=== PATIENT | female | born 1965 | race American Indian/Alaskan Native ===

== ENCOUNTER 2019-09-13 21:53 | Emergency (ER) | payer MEDICAID ==
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
--- NOTE | 2019-09-13 23:18 | XRay Report ---
Left hand 3 views INDICATION: Left hand pain. IMPRESSION: No fracture or subluxation of the left thumb is identified. Signer Name: Rachid Brown MD Signed: 09/13/2019 11:14 PM Workstation Name: [id number]
[2019-09-14] MEDS ORDERED: ULTRAM PO ONE (02:34)
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
[2019-09-14 03:36] VITALS: BP 140/78
== END 2019-09-14 03:34 | disposition home or self-care (01) ==
LOC: ED 21:53
DX: S63.642A Sprain of metacarpophalangeal joint of left thumb, initial encounter (principal); F17.200 Nicotine dependence, unspecified, uncomplicated; I10 Essential (primary) hypertension; Z88.8 Allergy status to other drugs, medicaments and biological substances; X58.XXXA Exposure to other specified factors, initial encounter; Y93.89 Activity, other specified; Y92.89 Other specified places as the place of occurrence of the external cause; Y99.8 Other external cause status

== ENCOUNTER 2019-12-27 13:15 | Emergency (ER) | payer MEDICAID ==
[2019-12-27] MEDS ORDERED: ONDANSETRON 4 MG/2 ML INJ IV STA (13:56)
[2019-12-27] MEDS ORDERED: MORPHINE 4 MG/1 ML INJ IV STA (13:56)
--- NOTE | 2019-12-27 14:04 | Emergency Department Report ---
ED Chest Pain HPI - General Chief Complaint: Chest Pain Stated Complaint: CHEST PAIN/SOB Time Seen by Provider: 12/27/19 13:54 Source: patient, EMS Mode of arrival: Stretcher Limitations: No Limitations - History of Present Illness MD Complaint: chest pain Pain Location: substernal, left chest Pain Radiation: none Severity: mild, moderate Quality: aching, sharp Consistency: constant Improves With: nothing Worsens With: movement - Related Data Previous Rx's Medication Instructions Recorded Last Taken Type Dicyclomine [Bentyl] 10 mg PO QID PRN #20 capsule 02/14/19 Unknown Rx Famotidine [Pepcid] 20 mg PO BID #60 tablet 02/14/19 Unknown Rx Metoclopramide [Reglan] 10 mg PO QID PRN #30 tablet 02/14/19 Unknown Rx Ondansetron [Zofran Odt] 4 mg PO Q8HR PRN #20 tab.rapdis 02/14/19 Unknown Rx Acetaminophen/Codeine [Tylenol 1 tab PO Q6H PRN 3 Days #12 tab 09/14/19 Unknown Rx /Codeine # 3 tab] methOCARBAMOL [Robaxin TAB] 750 mg PO Q8H #20 tablet 12/27/19 Unknown Rx predniSONE [Deltasone] 50 mg PO QDAY #5 tab 12/27/19 Unknown Rx Allergies Allergy/AdvReac Type Severity Reaction Status Date / Time NSAIDS (Non-Steroidal AdvReac Vomiting Verified 02/14/19 20:14 Anti-Inflamma Heart Score - HEART Score History: Moderately suspicious EKG: Normal Age: 45-65 Risk factors: 1-2 risk factors Troponin: < normal limit HEART Score: 3 ED Review of Systems ROS: Stated complaint: CHEST PAIN/SOB Other details as noted in HPI Comment: All other systems reviewed and negative ED Past Medical Hx - Past Medical History Previous Medical History?: Yes Hx Hypertension: Yes Hx Heart Attack/AMI: Yes Additional medical history: PUD, Pluerisy, Sciatica - Surgical History Past Surgical History?: No - Social History Smoking Status: Current Every Day Smoker - Medications Home Medications: Home Medications Medication Instructions Recorded Confirmed Last Taken Type Dicyclomine [Bentyl] 10 mg PO QID PRN #20 capsule 02/14/19 Unknown Rx Famotidine [Pepcid] 20 mg PO BID #60 tablet 03/21/19 Unknown Rx Metoclopramide [Reglan] 10 mg PO QID PRN #30 tablet 02/14/19 Unknown Rx Ondansetron [Zofran Odt] 4 mg PO Q8HR PRN #20 tab.rapdis 02/14/19 Unknown Rx Acetaminophen/Codeine [Tylenol 1 tab PO Q6H PRN 3 Days #12 tab 09/14/19 Unknown Rx /Codeine # 3 tab] methOCARBAMOL [Robaxin TAB] 750 mg PO Q8H #20 tablet 12/27/19 Unknown Rx predniSONE [Deltasone] 50 mg PO QDAY #5 tab 12/27/19 Unknown Rx ED Physical Exam - General Limitations: No Limitations General appearance: alert, in no apparent distress - Head Head exam: Present: atraumatic, normocephalic - Eye Eye exam: Present: normal appearance, PERRL, EOMI Pupils: Present: normal accommodation - ENT ENT exam: Present: mucous membranes moist - Neck Neck exam: Present: normal inspection - Respiratory Respiratory exam: Present: normal lung sounds bilaterally, rhonchi, chest wall tenderness. Absent: respiratory distress, accessory muscle use, decreased breath sounds, prolonged expiratory - Cardiovascular Cardiovascular Exam: Present: regular rate, normal rhythm. Absent: systolic murmur, diastolic murmur, rubs, gallop - GI/Abdominal GI/Abdominal exam: Present: soft, normal bowel sounds - Extremities Exam Extremities exam: Present: normal inspection - Back Exam Back exam: Present: normal inspection - Neurological Exam Neurological exam: Present: alert, oriented X3 - Psychiatric Psychiatric exam: Present: normal affect, normal mood - Skin Skin exam: Present: warm, dry, intact, normal color. Absent: rash ED Course Vital Signs 12/27/19 12/27/19 12/27/19 13:33 13:35 14:00 Temperature 98.3 F Pulse Rate 64 63 Respiratory 19 21 Rate Blood Pressure 145/88 139/87 O2 Sat by Pulse 99 99 99 Oximetry 12/27/19 12/27/19 12/27/19 14:31 14:35 15:00 Temperature Pulse Rate 62 60 Respiratory 15 16 14 Rate Blood Pressure 139/87 143/83 O2 Sat by Pulse 99 99 Oximetry 12/27/19 12/27/19 12/27/19 15:31 16:01 16:31 Temperature Pulse Rate 78 62 61 Respiratory 18 11 L 13 Rate Blood Pressure 143/83 143/77 143/77 O2 Sat by Pulse 100 100 100 Oximetry 12/27/19 12/27/19 12/27/19 17:01 17:31 18:01 Temperature Pulse Rate 58 L 54 L 53 L Respiratory 18 14 11 L Rate Blood Pressure 120/67 145/67 O2 Sat by Pulse 96 99 99 Oximetry - Consultations Consultation #1: 12/27/19 18:31 Patient refuses briefly discussed with Dr. Mendez of the patient's PCP plan is to admit ANTONI score - Antoni Score Age > 65: (0) No Aspirin use within the Past 7 Days: (0) No 3 or more CAD Risk Factors: (0) No 2 or more Angina events in past 24 hrs: (0) No Known CAD with more than 50% Stenosis: (0) No Elevated Cardiac Markers: (0) No ST Deviation Greater than 0.5mm: (0) No ANTONI Score: 0 ED Medical Decision Making - Lab Data Result diagrams: 12/27/19 14:19 12/27/19 14:19 - Radiology Data Radiology results: report reviewed - Medical Decision Making The patient presented with chest pain of uncertain etiology. Based on their history, lab analysis, EKG (which showed no evidence of ischemia or infarction), and imaging, in addition to the patient's physical exam, I see no evidence at this time for a malignant etiology for the patient's chest pain. There is no acute evidence for pulmonary embolus, acute myocardial infarction, pneumothorax, esophageal rupture, cardiac tamponade, thoracic artery dissection, or any other emergent cardiac, pulmonary or aortic pathology at this time. [Based on the nature and long duration of the patient's pain, paucity of EKG findings, and normal cardiac enzymatic blood analysis, acute coronary syndrome is exceedingly unlikely. It is highly likely that cardiac enzymes would be abnormal in chest pain of this duration if their chest pain was attributable to ACS.] [The patient also has very low risk for coronary artery disease based on their risk factor profile with no substantial risk factors (Age>65, >3 CAD risk factors -- family history of CAD, hypertension, hypercholesterolemia, diabetes, or current smoker, known CAD as defined by >50% stenosis, aspirin use in the past 7 days, severe angina having more than 2 episodes in the past 24 hours, ST changes >0.5mm, or positive cardiac biomarker).] HEART score _0-3. This patient may require cardiac stress testing on an outpatient basis and arrangements for this may be made during their follow-up visit with their primary care physician. The patient understands that at this time there is no evidence for a more malignant underlying process, but the patient also understands that early in the process of an illness, an emergency department workup can be falsely reassuring. Routine discharge counseling was given to the patient and the patient understands that worsening, changing, or persistent symptoms should prompt an immediate call or follow up with their primary physician or the emergency department immediately. The importance of close follow up was also discussed with the patient. Critical care attestation.: If time is entered above; I have spent that time in minutes in the direct care of this critically ill patient, excluding procedure time. ED Disposition Clinical Impression: Chest pain, Back pain Disposition: DC/ [facility] IP Is pt being admited?: No Does the pt Need Aspirin: No Condition: Stable Instructions: Chest Pain (ED), Costochondritis (ED) Prescriptions: predniSONE [Deltasone] 50 mg PO QDAY #5 tab methOCARBAMOL [Robaxin TAB] 750 mg PO Q8H #20 tablet Referrals: RENEA MENDEZ MD [Staff Physician] - 3-5 Days
--- NOTE | 2019-12-27 14:21 | XRay Report ---
CHEST 1 VIEW / XR chest 1V ap INDICATION: Chest Pain. COMPARISON: 02/14/2019 CXR. FINDINGS: Portable, single, frontal chest radiograph again demonstrates normal cardiomediastinal silh ou[place]. Clear lungs without pleural effusions or CHF. Intact bones. EKG leads. CONCLUSION/IMPRESSION: No acute disease. Thank you for the opportunity to participate in this patient's care. Signer Name: Seb Burk Signed: 12/27/2019 2:17 PM Workstation Name: [id number]
[2019-12-27 14:29] LABS: Basophils % (Auto) 0.2 % (0.0-1.8); Eosinophils % (Auto) 0.3 % (0.0-4.3); Hematocrit 41.9 % (30.3-42.9); Hemoglobin 14.2 gm/dl (10.1-14.3); Lymphocytes # (Auto) 1.2 K/mm3 (1.2-5.4); Lymphocytes % (Auto) 25.3 % (13.4-35.0); Mean Corpuscular HGB Conc 34 % (30-34); Mean Corpuscular Volume 98 fl (79-97); Monocytes # (Auto) 0.2 K/mm3 (0.0-0.8); Monocytes % (Auto) 3.2 % (0.0-7.3); Platelet Count 272 K/mm3 (140-440); Red Blood Count 4.26 M/mm3 (3.65-5.03); Red Cell Distribution Width 14.2 % (13.2-15.2)
[2019-12-27 14:52] LABS: BUN/Creatinine Ratio 24; Blood Urea Nitrogen 19 mg/dL (7-17); Hemolysis Index 15
[2019-12-27 18:09] VITALS: BP 145/67
== END 2019-12-27 19:05 | disposition short-term general hospital (02) ==
LOC: ED 13:15
DX: R07.9 Chest pain, unspecified (principal); M54.9 Dorsalgia, unspecified; I11.9 Hypertensive heart disease without heart failure; I25.2 Old myocardial infarction; F17.200 Nicotine dependence, unspecified, uncomplicated; Z79.899 Other long term (current) drug therapy; Z88.6 Allergy status to analgesic agent
CPT/HCPCS: 36415; 71045; 80048; 84484; 85025; 93005; 93010; 96374; 96375; 99285; J2270; J2405

== ENCOUNTER 2020-04-07 22:16 | Emergency (ER) | payer MEDICAID ==
[2020-04-07] MEDS ORDERED: SODIUM CHLORIDE 0.9% 1000 ML 1,000 ML IV ONE (23:50)
[2020-04-07] MEDS ORDERED: MORPHINE 4 MG/1 ML INJ IV ONE (23:50)
[2020-04-07 23:57] LABS: BUN/Creatinine Ratio 30; Blood Urea Nitrogen 18 mg/dL (7-17); Calcium 9.4 mg/dL (8.4-10.2); Hemolysis Index 8
[2020-04-08 00:05] LABS: Eosinophils # (Auto) 0.1 K/mm3 (0.0-0.4); Eosinophils % (Auto) 1.4 % (0.0-4.3); Hematocrit 38.9 % (30.3-42.9); Hemoglobin 13.4 gm/dl (10.1-14.3); Lymphocytes # (Auto) 2.6 K/mm3 (1.2-5.4); Mean Corpuscular HGB Conc 34 % (30-34); Mean Corpuscular Volume 97 fl (79-97); Monocytes # (Auto) 0.4 K/mm3 (0.0-0.8); Monocytes % (Auto) 7.6 % (0.0-7.3); Platelet Count 259 K/mm3 (140-440); Red Cell Distribution Width 13.7 % (13.2-15.2)
--- NOTE | 2020-04-08 00:09 | Emergency Department Report ---
ED Chest Pain HPI - General Chief Complaint: Chest Pain Stated Complaint: LEFT SIDE PAIN Time Seen by Provider: 04/07/20 23:28 Source: patient Mode of arrival: Ambulatory Limitations: No Limitations - History of Present Illness Initial Comments: 54-year-old -[place] Citizen female presents to the emergency department from home with complaint of chest and back pain, shortness of breath that has been going on over the past 3 to 4 days. She says initially it was just on the left side and felt like "someone was stabbing my lungs." Since that time it is also started to affect her right side. Patient has a dry cough that is chronic. Patient took a tramadol earlier this morning without much relief. She has a past medical history of pleurisy, sciatica, ulcerative colitis, hypertension, migraine headaches, and says that she has a history of a "mild heart attack" in the past. 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 No recent travel or sick contacts at home. She is a tobacco smoker but denies any illicit drug use. - Related Data Previous Rx's Medication Instructions Recorded Last Taken Type Dicyclomine [Bentyl] 10 mg PO QID PRN #20 capsule 02/14/19 Unknown Rx Famotidine [Pepcid] 20 mg PO BID #60 tablet 02/14/19 Unknown Rx Metoclopramide [Reglan] 10 mg PO QID PRN #30 tablet 02/14/19 Unknown Rx Ondansetron [Zofran Odt] 4 mg PO Q8HR PRN #20 tab.rapdis 02/14/19 Unknown Rx Acetaminophen/Codeine [Tylenol 1 tab PO Q6H PRN 3 Days #12 tab 09/14/19 Unknown Rx /Codeine # 3 tab] methOCARBAMOL [Robaxin TAB] 750 mg PO Q8H #20 tablet 12/27/19 Unknown Rx predniSONE [Deltasone] 50 mg PO QDAY #5 tab 12/27/19 Unknown Rx HYDROcodone/APAP 5-325 [[place] 1 each PO Q6HR PRN #8 tablet 04/08/20 Unknown Rx 5/325] predniSONE [Deltasone] 20 mg PO QDAY #4 tab 04/08/20 Unknown Rx Allergies Allergy/AdvReac Type Severity Reaction Status Date / Time NSAIDS (Non-Steroidal AdvReac Vomiting Verified 02/14/19 20:14 Anti-Inflamma Heart Score - HEART Score History: Slightly suspicious EKG: Normal Age: 45-65 Risk factors: 1-2 risk factors Troponin: < normal limit HEART Score: 2 - Critical Actions Critical Actions: 0-3 pts:0.9-1.7%risk of adverse cardiac event.Candidate for discharge ED Review of Systems ROS: Stated complaint: LEFT SIDE PAIN Other details as noted in HPI Comment: All other systems reviewed and negative Constitutional: denies: chills, fever Eyes: denies: eye pain, vision change ENT: denies: ear pain, throat pain Respiratory: cough, shortness of breath Cardiovascular: chest pain. denies: palpitations Gastrointestinal: denies: abdominal pain, vomiting Genitourinary: denies: dysuria, discharge Musculoskeletal: back pain. denies: arthralgia Skin: denies: rash, lesions Neurological: denies: headache, weakness ED Past Medical Hx - Past Medical History Previous Medical History?: Yes Hx Hypertension: Yes Hx Heart Attack/AMI: Yes Hx Headaches / Migraines: Yes Additional medical history: PUD, Pluerisy, Sciatica - Surgical History Past Surgical History?: No - Social History Smoking Status: Current Every Day Smoker Substance Use Type: None - Medications Home Medications: Home Medications Medication Instructions Recorded Confirmed Last Taken Type Dicyclomine [Bentyl] 10 mg PO QID PRN #20 capsule 02/14/19 Unknown Rx Famotidine [Pepcid] 20 mg PO BID #60 tablet 02/14/19 Unknown Rx Metoclopramide [Reglan] 10 mg PO QID PRN #30 tablet 02/14/19 Unknown Rx Ondansetron [Zofran Odt] 4 mg PO Q8HR PRN #20 tab.rapdis 02/14/19 Unknown Rx Acetaminophen/Codeine [Tylenol 1 tab PO Q6H PRN 3 Days #12 tab 09/14/19 Unknown Rx /Codeine # 3 tab] methOCARBAMOL [Robaxin TAB] 750 mg PO Q8H #20 tablet 12/27/19 Unknown Rx predniSONE [Deltasone] 50 mg PO QDAY #5 tab 12/27/19 Unknown Rx HYDROcodone/APAP 5-325 [[place] 1 each PO Q6HR PRN #8 tablet 04/08/20 Unknown Rx 5/325] predniSONE [Deltasone] 20 mg PO QDAY #4 tab 04/08/20 Unknown Rx ED Physical Exam - General Limitations: No Limitations - Other Other exam information: GENERAL: The patient is well-developed well-nourished. HENT: Normocephalic. Atraumatic. Patient has moist mucous membranes. EYES: Extraocular motions are intact. NECK: Supple. Trachea is midline. CHEST/LUNGS: Clear to auscultation. There is no respiratory distress noted. HEART/CARDIOVASCULAR: Regular. There is no tachycardia. There is no murmur. ABDOMEN: Abdomen is soft, nontender. Patient has normal bowel sounds. SKIN: Skin is warm and dry. NEURO: The patient is awake, alert, and oriented. The patient is cooperative. The patient has no focal neurologic deficits. Normal speech. MUSCULOSKELETAL: There is no tenderness or deformity. There is no evidence of acute injury. ED Course Vital Signs 04/07/20 04/08/20 23:05 04:25 Temperature 97.8 F 98 F Pulse Rate 66 79 Respiratory 18 16 Rate Blood Pressure 161/97 Blood Pressure 136/78 [Left] O2 Sat by Pulse 99 98 Oximetry ANTONI score - Antoni Score Age > 65: (0) No Aspirin use within the Past 7 Days: (0) No 3 or more CAD Risk Factors: (0) No 2 or more Angina events in past 24 hrs: (1) Yes Known CAD with more than 50% Stenosis: (0) No Elevated Cardiac Markers: (0) No ST Deviation Greater than 0.5mm: (0) No ANTONI Score: 1 ED Medical Decision Making - Lab Data Result diagrams: 04/07/20 23:26 04/07/20 23:26 - EKG Data -: EKG Interpreted by Me EKG shows normal: sinus rhythm, axis, intervals, QRS complexes (LVH), ST-T waves Rate: normal - EKG Data When compared to previous EKG there are: no significant change Interpretation: unchanged when compared t (01/14/20) - Radiology Data Radiology results: image reviewed interpreted by me: Chest x-ray does not show any acute process. There are no pleural effusions, obvious pneumonia and there is no pneumothorax. - Medical Decision Making This patient presents to the emergency department with a complaint of a 3 to 4- day history of some chest pain to the left side that radiated to the back and then to the right side. She does have a history of pleurisy, but also has a history of a "mild heart attack." EKG does not show any signs of ST elevation [place] or any significant dysrhythmia. Chest x-ray does not show any pneumonia, pneumothorax, focal consolidation, pleural effusions, or any other acute process. Patient's labs have been unremarkable including negative troponins x2 and a negative d-dimer. Patient was given some IV analgesia and a dose of IV Solu-Medrol. She has been reevaluated multiple times over multiple hours and her pain has resolved, currently down to a 0 out of 10. She has a heart score of 2 and a low ANTONI score. For all these reasons patient appears safe for discharge home at this time. As per our low risk chest pain protocol, her contact information has been sent over to [facility] [place], and someone from their office should be contacting her shortly for close outpatient follow-up. The patient will return to the emergency department with any worsening of her symptoms or any acute distress. Critical Care Time: No Critical care attestation.: If time is entered above; I have spent that time in minutes in the direct care of this critically ill patient, excluding procedure time. ED Disposition Clinical Impression: Atypical chest pain Hypertension Qualifiers: Hypertension type: essential hypertension Qualified Code(s): I10 - Essential (primary) hypertension Disposition: - TO HOME OR SELFCARE Is pt being admited?: No Condition: Stable Instructions: Chest Pain (ED), Hypertension (ED) Additional Instructions: Please follow-up with your primary care physician in the next few days. I am sending your contact information over to [facility] [place] and someone from their office should be contacting you shortly for close outpatient follow-up. Just in case, I have also given you a referral for 1 of their maintenance and repair worker, Dr. Pleitez. Return to the emergency department with any wor sening of your symptoms or any acute distress. You have been prescribed a medication that is sedating and therefore should not be taken prior to driving, working, and responsible for children and in no way should be mixed with alcohol of any quantity. Prescriptions: predniSONE [Deltasone] 20 mg PO QDAY #4 tab HYDROcodone/APAP 5-325 [[place] 5/325] 1 each PO Q6HR PRN #8 tablet PRN Reason: Pain Referrals: STONE PLEITEZ MD [Staff Physician] - 3-5 Days Time of Disposition: 03:58
--- NOTE | 2020-04-08 00:22 | XRay Report ---
CHEST 1 VIEW INDICATION: Chest Pain. COMPARISON: 12/27/2019 FINDINGS: Support devices: None. Heart: Within normal limits. Lungs/Pleura: No acute air space or interstitial disease. Additional findings: None. IMPRESSION: 1. No acute findings. Signer Name: Karl Yeboah MD Signed: 04/08/2020 12:18 AM Workstation Name: [email or web address]
[2020-04-08] MEDS ORDERED: methylPREDNISolone Sod Succinate 125 MG/2 ML INJ IV ONE (02:18)
[2020-04-08] MEDS ORDERED: MORPHINE 4 MG/1 ML INJ IV ONE (02:18)
[2020-04-08 04:26] VITALS: BP 136/78
== END 2020-04-08 04:27 | disposition home or self-care (01) ==
LOC: ED 22:16
DX: R07.89 Other chest pain (principal); M54.89 Other dorsalgia; R06.02 Shortness of breath; R05 Cough; I10 Essential (primary) hypertension; I25.2 Old myocardial infarction; G43.909 Migraine, unspecified, not intractable, without status migrainosus; F17.200 Nicotine dependence, unspecified, uncomplicated; Z79.899 Other long term (current) drug therapy; Z88.8 Allergy status to other drugs, medicaments and biological substances
CPT/HCPCS: 36415; 71045; 80048; 84484; 85025; 85379; 93005; 96374; 96375; 99284; J2270; J2930; J7030; 96376

== ENCOUNTER 2020-10-12 16:59 | Emergency (ER) | payer MEDICAID ==
[2020-10-12 17:14] VITALS: BP 153/98
== END 2020-10-12 19:40 | disposition left against medical advice (07) ==
LOC: ED 16:59
DX: K92.2 Gastrointestinal hemorrhage, unspecified (principal); R10.9 Unspecified abdominal pain; Z53.21 Procedure and treatment not carried out due to patient leaving prior to being seen by health care provider